=== PATIENT | male | born 1970 | race American Indian/Alaskan Native ===

== ENCOUNTER 2019-05-16 07:39 | Emergency (ER) | payer OTHER ==
[2019-05-16 07:43] VITALS: BP 117/81
--- NOTE | 2019-05-16 08:11 | XRay Report ---
LEFT KNEE HISTORY: Pain and swelling. COMPARISON: None. TECHNIQUE: 3 views of the left knee obtained. FINDINGS: Bones: No fracture or dislocation. Mild osteopenia. Joint spaces: Maintained. Soft tissues: No significant abnormality. Additional findings: A small quadriceps insertion spur and mild suprapatellar soft tissue swelling. N o joint effusion. IMPRESSION: 1. Patellar enthesopathy and mild soft tissue edema. 2. No other significant abnormality. Signer Name: Jaret Villegas MD Signed: 05/16/2019 8:07 AM Workstation Name: [id number]
--- NOTE | 2019-05-16 09:42 | Emergency Department Report ---
ED Extremity Problem HPI - General Chief complaint: Extremity Injury, Lower Stated complaint: LEFT KNEE PAIN Time Seen by Provider: 05/16/19 09:37 Source: patient Mode of arrival: Ambulatory Limitations: No Limitations - History of Present Illness Initial comments: pt is a 48 yo male who presents to the ed with c/o left knee pain that began 3 days ago. he denies any fall or injury. never injured in the past. no numbness or weakness. he is ambulatory with some discomfort. PMHx DM. allergy: penicillin. - Related Data Home Medications Medication Instructions Recorded Confirmed Last Taken glipiZIDE [Glucotrol] 5 mg PO BID 07/25/15 07/26/15 07/24/15 metFORMIN [Glucophage] 500 mg PO BID 07/25/15 07/26/15 07/24/15 Phenytoin [Dilantin] 100 mg PO 07/26/15 05/09/15 Previous Rx's Medication Instructions Recorded Last Taken Type Naproxen [EC-Naproxen] 500 mg PO BID PRN #20 tablet. 05/16/19 Unknown Rx Allergies Allergy/AdvReac Type Severity Reaction Status Date / Time Penicillins Allergy Hives Verified 07/25/15 14:52 ED Review of Systems ROS: Stated complaint: LEFT KNEE PAIN Other details as noted in HPI Comment: All other systems reviewed and negative ED Past Medical Hx - Past Medical History Previous Medical History?: Yes Hx Hypertension: No Hx Diabetes: Yes (FOR 2 YRS) Hx HIV: No - Surgical History Past Surgical History?: Yes Additional Surgical History: Brain anerysm - Social History Smoking Status: Never Smoker - Medications Home Medications: Home Medications Medication Instructions Recorded Confirmed Last Taken Type glipiZIDE [Glucotrol] 5 mg PO BID 07/25/15 07/26/15 07/24/15 History metFORMIN [Glucophage] 500 mg PO BID 07/25/15 07/26/15 07/24/15 History Phenytoin [Dilantin] 100 mg PO 07/26/15 05/09/15 History Naproxen [EC-Naproxen] 500 mg PO BID PRN #20 tablet. 05/16/19 Unknown Rx ED Physical Exam - General Limitations: No Limitations General appearance: alert, in no apparent distress - Head Head exam: Present: atraumatic, normocephalic - Eye Eye exam: Present: normal appearance - ENT ENT exam: Present: mucous membranes moist - Extremities Exam Extremities exam: Present: other (small amount of edema to the right anterior knee, TTP to the superior portion of the patella, FROM of the right knee, no right leg swelling, no joint laxity, no obvious deformity, neurovascularly intact) - Neurological Exam Neurological exam: Present: alert, oriented X3 - Psychiatric Psychiatric exam: Present: normal affect, normal mood - Skin Skin exam: Present: warm, dry, intact ED Course Vital Signs 05/16/19 07:42 Temperature 98.0 F Pulse Rate 87 Respiratory 16 Rate Blood Pressure 117/81 O2 Sat by Pulse 99 Oximetry ED Medical Decision Making - Radiology Data Radiology results: report reviewed left knee XR: patellar enthesopathy and mild soft tissue edema no other significant abnormality - Medical Decision Making pt is a 48 yo male who presents to the ed with c/o left knee pain that began 3 days ago. he denies any fall or injury. never injured in the past. no numbness or weakness. he is ambulatory with some discomfort. PMHx DM. allergy: penicillin. on exam: small amount of edema to the right anterior knee, TTP to the superior portion of the patella, FROM of the right knee, no right leg swelling, no joint laxity, no obvious deformity, neurovascularly intact. left knee XR: patellar enthesopathy and mild soft tissue edema, no other significant abnormality. no signs of cellulitis or septic joint. given prescription for naproxen. advised pt please take medication as prescribed as needed. may use ice for 15 minutes at a time, rest, elevation of the leg. follow up with an orthopedic doctor in the next 3-5 days. do not wear jaylene bandage too tightly and do not wear while you are sleeping. return to the emergency room for any new or worsening symptoms - Differential Diagnosis strain, sprain, fx, dislocation, joint effusion, arthritis, gout Critical care attestation.: If time is entered above; I have spent that time in minutes in the direct care of this critically ill patient, excluding procedure time. ED Disposition Clinical Impression: Bone spur Left knee pain Qualifiers: Chronicity: acute Qualified Code(s): M25.562 - Pain in left knee Disposition: - TO HOME OR SELFCARE Is pt being admited?: No Does the pt Need Aspirin: No Condition: Stable Instructions: Osteoarthritis (ED), Knee Pain (ED) Additional Instructions: please take medication as prescribed as needed. may use ice for 15 minutes at a time, rest, elevation of the leg. follow up with an orthopedic doctor in the next 3-5 days. do not wear jaylene bandage too tightly and do not wear while you are sleeping. return to the emergency room for any new or worsening symptoms Prescriptions: Naproxen [EC-Naproxen] 500 mg PO BID PRN #20 tablet.dr YOUNG Reason: pain Referrals: PRESTON WALKER MD [Staff Physician] - 3-5 Days [facility] [Provider Group] - 3-5 Days Time of Disposition: 09:44 Print Language: LAO
== END 2019-05-16 10:28 | disposition home or self-care (01) ==
LOC: ED 07:39
DX: M77.8 Other enthesopathies, not elsewhere classified (principal); M25.562 Pain in left knee; E11.9 Type 2 diabetes mellitus without complications; Z79.899 Other long term (current) drug therapy; Z88.0 Allergy status to penicillin